=== PATIENT | male | born 1950 | race Caucasian/White ===

== ENCOUNTER 2017-01-18 12:47 | Observation (INO) | payer MEDICARE, OTHER ==
[2017-01-14 14:35] LABS: BASOPHILS ABSOLUTE 0.08 10/3/uL (0.0-0.16); EOSINOPHILS 2.6 %; HEMATOCRIT 45.5 % (40.0-51.0); HEMOGLOBIN 15.4 g/dL (13.6-17.8); IMMATURE GRANULOCYTES 0.3 %; IMMATURE GRANULOCYTES ABSOLUTE 0.02 10/3/uL (0.0-0.11); LYMPHOCYTES 29.1 %; LYMPHOCYTES ABSOLUTE 2.27 10/3/uL (0.67-4.30); MEAN CORPUS HGB CONC 33.8 g/dL (32.0-36.0); MEAN CORPUSCULAR HEMOGLOB 33.3 pg (26.0-34.0); MEAN CORPUSCULAR VOLUME 98.3 fL (80-100); MEAN PLATELET VOLUME 9.7 fL (9.2-13.0); MONOCYTES 9.6 %; MONOCYTES ABSOLUTE 0.75 10/3/uL (0.21-1.20); NEUTROPHILS 57.4 %; NEUTROPHILS ABSOLUTE 4.48 10/3/uL (2.02-8.40); PLATELET COUNT 237 10/3/uL (150-400); RBC DISTRIBUTION WIDTH 13.6 % (12.0-16.0); RED CELL COUNT 4.63 10/6/uL (4.7-6.1); WHITE BLOOD CELLS 7.8 10/3/uL (4.5-10.5)
[2017-01-14 14:37] LABS: MANUAL DIFF NO %
[2017-01-14 14:51] LABS: BUN (BLOOD UREA NITROGEN) 10 MG/DL (6-23); CALCIUM, SERUM 8.3 MG/DL (8.5-10.4); CHLORIDE, SERUM 104 MMOL/L (96-112); CO2 (CARBON DIOXIDE) 32 MMOL/L (24-34); CREATININE 0.77 MG/DL (0.70-1.30); GFR AFRICAN AMERICAN 110 ML/MIN (>=60); GFR NON AFRICAN AMERICAN 95 ML/MIN (>=60); GLUCOSE, SERUM 85 MG/DL (60-99); POTASSIUM, SERUM 4.1 MMOL/L (3.5-5.3); SODIUM, SERUM 143 MMOL/L (135-148)
--- NOTE | ~2017-01-18 | OP ---
Record Of Operation [facility] [address] [place]. [address] NAME: WANDA ALDANA : 50 STATUS : ADM Daniel PAT#: [id number] AGE: 66 ADM/REG DATE : 01/18/17 MR#: [id number] REPORT SERV DATE: 01/18/17 DICTATED BY: FABIANO JULIAN III DATE: 01/18/17 REPORT STATUS : Draft TRANSCRIBED BY: MODL DATE: 01/18/17 DATE OF PROCEDURE: 01/18/2017 PROCEDURE: Cystoscopy, retrogrades, and multiple bladder biopsies with left ureteroscopy. PREOPERATIVE DIAGNOSIS: Hematuria and erythematous bladder lesions. POSTOPERATIVE DIAGNOSIS: Hematuria and erythematous bladder lesions. ANESTHESIA: General. SURGEON: Fabiano Julian M.D. DESCRIPTION OF PROCEDURE: Following induction of adequate general anesthesia, the patient was placed in dorsal lithotomy position and prepped and draped in a sterile fashion. The urethra was normal. The prostate was entered, was short but occlusive. The bladder was entered, there were 3 to 4 reddened areas in the posterior bladder wall as well as the trigone. No papillary tumors were noted. I examined the bladder, and after one fill, some of the reddened areas began to weep and bleed a bit. Bilateral retrogrades were done that showed somewhat narrowed distal ureters with a fairly dilated ureter above. The ureter was dilated up to approximately the proximal ureter; at which point, it did appear fairly normal size with sharp calices. I went ahead and did ureteroscopy on both, there was no stone, no tumor. There only was simply what appeared to be a smooth transition to a somewhat narrowed segment. Bladder biopsies were done times 4 to 5 in the posterior bladder wall which did bleed a fair amount, these were cauterized, and there was still some oozing, so a 20-Sami 3-way catheter was inserted and placed on irrigation. We will observe the patient overnight and probably keep his catheter in a day or two post discharge. He tolerated the procedure well. OB/MODL Fabiano Julian III, M.D. / [id number] CC: Fabiano Julian III, M.D.
[~2017-01-18 12:47] MED LIST: PROZAC40 MG PO; TRAZ50 PO
[2017-01-19] MEDS ORDERED: PERCOCET 10/3251 TAB PO (08:12)
== END 2017-01-19 18:26 | disposition home or self-care (01) ==
LOC: SDC 12:47 → SDC/OF 17:39 → 5SO 20:07 → 4SO 20:10
PROVIDERS: Urology
PROC: 0TBB8ZX Excision of Bladder, Via Natural or Artificial Opening Endoscopic, Diagnostic (ICD-10-PCS; 2017-01-18)
PROC: BT14ZZZ Fluoroscopy of Kidneys, Ureters and Bladder (ICD-10-PCS; 2017-01-18)
PROC: 0TJ98ZZ Inspection of Ureter, Via Natural or Artificial Opening Endoscopic (ICD-10-PCS; principal; 2017-01-18 14:30)
DX: N30.01 Acute cystitis with hematuria (principal); N30.21 Other chronic cystitis with hematuria; N32.89 Other specified disorders of bladder; N13.5 Crossing vessel and stricture of ureter without hydronephrosis; N28.82 Megaloureter; Z79.899 Other long term (current) drug therapy
CPT/HCPCS: 71020; 74420; 80048; 85025; 88305; 93005; A9270-GY; C1769; G0378; J0360; J1170; J2250; J2270; J2405; J3010; Q9967